=== PATIENT | female | born 1950 | race Caucasian/White ===

== ENCOUNTER 2020-09-18 23:37 | Outpatient (REF) | payer MEDICARE, SELFPAY ==
[2020-09-21 12:15] LABS: COVID-19 RT-PCR Result Not detected ((See Note))
== END 2020-09-18 23:57 ==
LOC: LBN 23:37
PROVIDERS: PCP Family Medicine; Visit Provider Nurse Practitioner Adult Health
DX: Z11.52 Encounter for screening for COVID-19 (principal)
CPT/HCPCS: U0003

== ENCOUNTER 2020-09-22 17:13 | Outpatient (REF) | payer MEDICARE, SELFPAY ==
[2020-09-25 07:58] LABS: COVID-19 RT-PCR Result Not detected ((See Note))
== END 2020-09-22 17:33 ==
LOC: LBN 17:13
PROVIDERS: PCP Family Medicine; Visit Provider Nurse Practitioner Adult Health
DX: Z11.52 Encounter for screening for COVID-19 (principal)
CPT/HCPCS: U0003

== ENCOUNTER 2020-09-27 19:10 | Outpatient (REF) | payer MEDICARE, SELFPAY ==
[2020-10-01 17:57] LABS: COVID-19 RT-PCR Result Not Detected ((See Note))
== END 2020-09-27 19:11 | disposition home or self-care (01) ==
LOC: LBN 19:10
PROVIDERS: PCP Family Medicine; Visit Provider Nurse Practitioner Adult Health
DX: Z20.822 Contact with and (suspected) exposure to COVID-19 (principal)
CPT/HCPCS: U0003